=== PATIENT | male | born 1965 | race Caucasian/White ===

== ENCOUNTER 2016-10-12 07:00 | Day surgery (SDC) | payer BC ==
[~2016-10-12 07:00] MED LIST: SEPTRA DS 800 M1 TAB PO
--- NOTE | 2016-10-12 08:19 | Operative Note ---
Surgeon/Diagnoses Surgeon/Apprentice [employer]ter Neckties(s) Date of procedure: 10/12/16 Surgeon: MD Nadir Loco Diagnoses Pre-op diagnosis: History of colon polyps Post-op diagnosis Colon polyps Sigmoid diverticulosis Patchy left-sided colitis Procedure Procedure Procedure: Colonoscopy with polypectomy by means other than snare Indications: KAREEN CHAVIS is a 51 year-old Male with a history of large villotubular adenoma at 30 cm noted on his most recent colonoscopy in 2014. Findings: Bowel preparation moderate Fairly severe colonic spasticity No significant tortuosity 3 adjacent polyps at 30 cm Scattered sigmoid diverticulosis (mostly inverted diverticular disease) Inflammation between 20 and 35 cm Procedure Description: After informed consent was obtained, the patient was taken to the endoscopy suite. IV sedation ensued after he was transferred to the LEFT lateral decubitus position. Digital rectal exam revealed no significant abnormality. The colonoscope was placed in position. The entire colon was evaluated. Bowel preparation was moderate with large volume irrigation and suctioning used to improve visualization. He did have fairly severe spasticity and lack of relaxation of the entire colon. Fortunately, he did not have significant tortuosity. Numerous inverted diverticula of the sigmoid colon were noted. Focal /patchy inflammatory changes between 20 and 35 cm were noted.3 adjacent polyps at 30 cm were also noted. The 3 polyps at 30 cm were excised with cold biopsy forceps. The most significant portion of focal inflammatory response at 25 cm was biopsied. No additional lesions were noted. The colonoscope was carefully removed and the patient was transferred to recovery. EBL (ml): 1 Anesthesia: IV sedation with 7 mg of Versed and 150 g of fentanyl Complications: No immediate Specimens: 3 adjacent polyps at 30 cm Biopsy 25 cm Disposition Disposition: Stable to recovery from where he will be discharged home. He will follow up in one week. Repeat colonoscopy is pending pathology but will need to be completed in less than 3 years. Due to fairly significant spasticity and complex changes in and around the sigmoid, a barium enema within the next 6-12 months is warranted. If barium enema is normal, repeat colonoscopy will likely be between 2-3 years. at [id number]
[2016-10-12 14:31] VITALS: BP 122/73
== END 2016-10-12 09:15 | disposition home or self-care (01) ==
LOC: SDC 07:00
PROVIDERS: Surgery
PROC: 0D5E8ZZ Destruction of Large Intestine, Via Natural or Artificial Opening Endoscopic (ICD-10-PCS; principal; 2016-10-12 07:30)
DX: K57.31 Diverticulosis of large intestine without perforation or abscess with bleeding (principal); K52.9 Noninfective gastroenteritis and colitis, unspecified; Z86.010 Personal history of colon polyps; K63.5 Polyp of colon